=== PATIENT | female | born 1985 | race Caucasian/White ===

== ENCOUNTER 2018-03-25 12:57 | Outpatient (CLI) | payer BC ==
--- NOTE | 2018-03-25 17:59 | Ultrasound Report ---
Reason: ENCOUNTER FOR TEST, RESULT POSITIVE Procedure Date: 03/25/2018 Accession Number: [id number] / [id number] Procedure: US - OB First Trimester CPT Code: FULL RESULT: EXAM: FIRST TRIMESTER OBSTETRIC ULTRASOUND (Less than 11 weeks) EXAM DATE: 03/25/2018 02:30 PM. CLINICAL HISTORY: Encounter for test, result positive. LMP: 01/16/2018. COMPARISONS: None. TECHNIQUE: Transabdominal and transvaginal ultrasound examination with static image documentation. CLINICAL DATES: EGA 9 weeks 5 days with CARLO 10/23/2018 based on last menstrual period. ASSESSMENT: The gestational sac could not be appropriately measured due to acoustic window limitations and mass-effect mentioned below. Embryo: CRL (crown-rump length) 2.6 mm = 9 weeks 3 days. Cardiac activity: 174 beats per minute. Yolk sac: 5.1 mm. Amniotic fluid: Not accurately assessed at this gestational age. Early placenta: Not visible at this gestational age. Other: No perigestational fluid collection demonstrated. MATERNAL STRUCTURES: Uterus: Anteverted. The uterus contains a hypoechoic 7.8 x 7.1 x 7.0 cm fundal mass which displaces the endometrium and gestation posteriorly, felt to represent a fibroid. Cervix: Closed. The adnexa were not well seen. Free Fluid: None. Other: None. IMPRESSION: 1. Single viable intrauterine at EGA 9 weeks 3 days with CARLO 10/25/2018 based on crown-rump length, which is concordant with clinical dating based on the last menstrual period. 2. Assigned dating is CARLO 9 weeks 3 days based on the current ultrasound. RADIA
== END 2018-03-25 12:58 | disposition home or self-care (01) ==
LOC: DI 12:57
PROVIDERS: ATTEND Registered Nurse
DX: Z32.01 Encounter for pregnancy test, result positive (principal); Z3A.09 9 weeks gestation of pregnancy
CPT/HCPCS: 76801

== ENCOUNTER 2018-03-28 08:00 | Outpatient (CLI) | payer BC ==
[2018-03-28 14:34] LABS: MUDS CUTOFF CONCENTRATIONS CUTOFF CONC BELOW:
[2018-03-28 15:03] LABS: AMPHETAMINE SCREEN,URINE NEGATIVE (NEGATIVE); BENZODIAZEPINES SCREEN, URINE NEGATIVE (NEGATIVE); COCAINE SCREEN URINE NEGATIVE (NEGATIVE); METHADONE SCREEN, URINE NEGATIVE (NEGATIVE); METHAMPHETAMINES SCREEN, URINE NEGATIVE (NEGATIVE); OPIATE SCREEN, URINE NEGATIVE (NEGATIVE); OXYCODONE SCREEN, URINE NEGATIVE (NEGATIVE); PROPOXYPHENE SCREEN, URINE NEGATIVE (NEGATIVE); TRICYCLIC ANTIDEPRESSANT,URINE NEGATIVE (NEGATIVE)
== END 2018-03-28 08:01 | disposition home or self-care (01) ==
LOC: LAB.R 08:00
PROVIDERS: ATTEND Obstetrics & Gynecology
DX: Z36.9 Encounter for antenatal screening, unspecified (principal); Z11.3 Encounter for screening for infections with a predominantly sexual mode of transmission
CPT/HCPCS: 80306; 87491; 87591

== ENCOUNTER 2018-04-20 11:31 | Outpatient (CLI) | payer BC ==
[2018-04-20 12:00] LABS: BILIRUBIN,URINE NEGATIVE (NEGATIVE); GLUCOSE, URINE (UA) NEGATIVE (NEGATIVE); KETONES,URINE (UA) NEGATIVE (NEGATIVE); LEUKOCYTE ESTERASE, URINE NEGATIVE (NEGATIVE); NITRITE,URINE NEGATIVE (NEGATIVE); OCCULT BLOOD,URINE NEGATIVE (NEGATIVE); PROTEIN,URINE NEGATIVE (NEGATIVE); UROBILINOGEN,URINE 0.2 (NORMAL) E.U./dL (NORMAL)
[2018-04-20 12:00] LABS: BASOPHILS % (AUTO) 0.3 %; EOSINOPHILS # (AUTO) 0.1 10^3/uL (0.0-0.7); EOSINOPHILS % (AUTO) 0.7 %; HGB - HEMOGLOBIN 13.7 g/dL (12.0-16.0); LYMPHOCYTES # (AUTO) 1.4 10^3/uL (1.5-3.5); LYMPHOCYTES % (AUTO) 18.1 %; MEAN CORPUSCULAR HEMOGLOBIN 29.9 pg (27.0-31.0); MEAN CORPUSCULAR HGB CONC 34.8 g/dL (32.0-36.0); MEAN CORPUSCULAR VOLUME 86.1 fL (81.0-99.0); MEAN PLATELET VOLUME 9.8 fL (7.9-10.8); MONOCYTES # (AUTO) 0.5 10^3/uL (0.0-1.0); NEUTROPHILS # (AUTO) 5.7 10^3/uL (1.5-6.6); NEUTROPHILS % (AUTO) 73.9 %; PLT - PLATELET COUNT 187 10^3/uL (130-450); RED BLOOD COUNT 4.58 10^6/uL (4.20-5.40); RED CELL DISTRIBUTION WIDTH 12.8 % (12.0-15.0); WHITE BLOOD COUNT 7.7 x10^3/uL (4.8-10.8)
[2018-04-20 12:07] LABS: BACTERIA,URINE Rare /HPF (None Seen); CLARITY,URINE CLEAR (CLEAR); RBC,URINE None Seen /HPF (0-5); SQUAMOUS EPITHELIAL CELL,UR MOD Squamous (<= Few)
[2018-04-21 12:50] LABS: HIV AG/AB 4TH GEN NON-REACTIVE (NON-REACTIVE)
[2018-04-21 13:31] LABS: HEPATITIS B SURFACE ANTIGEN NON-REACTIVE (NON-REACTIVE); HEPATITIS C ANTIBODY NON-REACTIVE (NON-REACTIVE)
== END 2018-04-20 11:32 | disposition home or self-care (01) ==
LOC: LAB 11:31
PROVIDERS: ATTEND Obstetrics & Gynecology
DX: Z36.9 Encounter for antenatal screening, unspecified (principal); Z34.90 Encounter for supervision of normal pregnancy, unspecified, unspecified trimester
CPT/HCPCS: 36415; 81001; 81599; 85025; 86592; 86762; 86803; 86850; 86900; 86901; 87340; 87389

== ENCOUNTER 2018-05-23 11:12 | Outpatient (CLI) | payer SELFPAY | END 2018-05-23 11:13 | disposition home or self-care (01) | LOC: LAB 11:12 | PROVIDERS: ATTEND Obstetrics & Gynecology | DX: Z01.89 Encounter for other specified special examinations (principal); Z33.1 Pregnant state, incidental | CPT/HCPCS: 36415 ==

== ENCOUNTER 2022-11-16 14:15 | Outpatient (CLI) | payer OTHER ==
--- NOTE | 2022-11-16 17:17 | XRAY Report ---
PROCEDURE: Elbow 2 View RT INDICATIONS: PAIN IN RIGHT ELBOW TECHNIQUE: 2 views of the elbow were acquired. COMPARISON: None. FINDINGS: Bones: Abnormal rotation of the lateral humerus, with associated dystrophic calcification within thi s region. Soft tissues: Moderate effusion. No suspicious soft tissue calcifications or masses. IMPRESSION: Abnormal rotation of the distal humerus, with associated moderate elbow joint effusion. Evidence of p rior injury within this region. Consider cross-sectional imaging for further evaluation. Reviewed by: Marshall Sanchez on 11/16/2022 4:15 PM PONCHO Approved by: Marshall Sanchez on 11/16/2022 4:15 PM PONCHO Station ID: [id number]
== END 2022-11-16 14:30 | disposition home or self-care (01) ==
LOC: DI.N 14:15
PROVIDERS: ATTEND Nurse Practitioner
DX: M25.521 Pain in right elbow (principal); M25.421 Effusion, right elbow; M21.821 Other specified acquired deformities of right upper arm

== ENCOUNTER 2023-11-06 06:51 | Inpatient (IN) | payer OTHER ==
[2023-11-06 07:50] LABS: BASOPHILS # (AUTO) 0.1 10^3/uL (0.0-0.1); BASOPHILS % (AUTO) 0.4 %; EOSINOPHILS # (AUTO) 0.1 10^3/uL (0.0-0.7); EOSINOPHILS % (AUTO) 0.7 %; HCT - HEMATOCRIT 44.6 % (37.0-47.0); HGB - HEMOGLOBIN 14.3 g/dL (12.0-16.0); LYMPHOCYTES # (AUTO) 1.4 10^3/uL (1.5-3.5); LYMPHOCYTES % (AUTO) 10.3 %; MEAN CORPUSCULAR HGB CONC 32.1 g/dL (32.0-36.0); MEAN CORPUSCULAR VOLUME 87.3 fL (81.0-99.0); MEAN PLATELET VOLUME 11.5 fL (7.9-10.8); MONOCYTES # (AUTO) 1.2 10^3/uL (0.0-1.0); MONOCYTES % (AUTO) 8.4 %; NEUTROPHILS % (AUTO) 79.8 %; PLT - PLATELET COUNT 267 10^3/uL (130-450); RED BLOOD COUNT 5.11 10^6/uL (4.20-5.40); RED CELL DISTRIBUTION WIDTH 12.8 % (12.0-15.0); WHITE BLOOD COUNT 13.8 x10^3/uL (4.8-10.8)
[2023-11-06] MEDS: SODIUM CHLORIDE 0.9% 1,000 ML IV STA (07:51)
[2023-11-06] MEDS: KETOROLAC 30 MG/ML VIAL IVP STA (07:51)
[2023-11-06 07:56] LABS: BILIRUBIN,URINE NEGATIVE (NEGATIVE); GLUCOSE, URINE (UA) NEGATIVE (NEGATIVE); KETONES,URINE (UA) NEGATIVE (NEGATIVE); LEUKOCYTE ESTERASE, URINE NEGATIVE (NEGATIVE); NITRITE,URINE NEGATIVE (NEGATIVE); OCCULT BLOOD,URINE SMALL (NEGATIVE); PROTEIN,URINE NEGATIVE (NEGATIVE); UROBILINOGEN,URINE 0.2 (NORMAL) E.U./dL (NORMAL)
[2023-11-06 07:57] LABS: CLARITY,URINE CLEAR (CLEAR)
[2023-11-06 07:59] LABS: HCG UR QUAL NEGATIVE
[2023-11-06 08:05] LABS: ALBUMIN 4.5 g/dL (3.2-5.5); ALBUMIN/GLOBULIN RATIO 1.6 (1.0-2.2); ALKALINE PHOSPHATASE 66 IU/L (42-121); ALT ALANINE AMINOTRANSFERASE 23 IU/L (10-60); AST ASPARTATE AMINOTRANSFERASE 12 IU/L (10-42); BILIRUBIN,TOTAL 1.3 mg/dL (0.2-1.0); BUN - BLOOD UREA NITROGEN 7 mg/dL (6-20); CALCIUM 9.9 mg/dL (8.5-10.3); CARBON DIOXIDE - CO2 26 mmol/L (21-32); CHLORIDE 103 mmol/L (101-111); CREATININE 0.7 mg/dL (0.6-1.3); GFR - MDRD 94 (>89); GLUCOSE 122 mg/dL (74-104); POTASSIUM 3.7 mmol/L (3.5-4.5); SODIUM 138 mmol/L (135-145); TOTAL PROTEIN 7.3 g/dL (6.4-8.9)
[2023-11-06 08:06] LABS: RBC,URINE 0-5 /HPF (0-5); WBC,URINE 0-3 /HPF (0-5)
[2023-11-06 08:06] LABS: LIPASE < 10 U/L (11-82)
[2023-11-06 08:07] LABS: BACTERIA,URINE Few /HPF (None Seen); SQUAMOUS EPITHELIAL CELL,UR FEW Squamous (<= Few)
[2023-11-06] MEDS ORDERED: iohexoL-300 100 ML VIAL ONE (08:08)
--- NOTE | 2023-11-06 09:07 | CT Report ---
PROCEDURE: Abdomen/Pelvis W INDICATIONS: LLQ pain CONTRAST: 100ml omni 300 TECHNIQUE: After the administration of intravenous contrast, a CT scan of the abdomen and pelvis was performed. Images were recorded and evaluated at appropriate window settings. Reformats: coronal and sagittal. F or radiation dose reduction, the following was used: automated exposure control, adjustment of mA and /or kV according to patient size. COMPARISON: None. FINDINGS: Image quality: Diagnostic. Lower chest: Unremarkable. Liver: No solid mass. Gallbladder: Unremarkable. Biliary tree: No intrahepatic or extrahepatic dilation, accounting for age. Spleen: No splenomegaly. Pancreas: No pancreatic ductal dilation. Adrenals: No adrenal nodule. Kidneys and ureters: No hydronephrosis. No renal cystic lesion which requires follow up. No solid mas s. Stomach, bowel and peritoneum: No gastric or small bowel dilation. There is thickening and inflammato ry change within the distal descending/proximal sigmoid colon. Colonic diverticular present. There ar e several punctate area of air within the mesenteric fat within the area of stranding. No abscess for mation.. No pathologic free fluid. Lymph nodes: No central or retroperitoneal adenopathy. Vessels: No infrarenal aortic aneurysm. Patent portal vein. PELVIS Reproductive organs: Unremarkable. Bladder: No abnormal wall thickening, accounting for underdistention. Pelvic lymph nodes: No pelvic adenopathy by size criteria. Bones: No aggressive osseous abnormality. Other: No significant ventral or inguinal hernia. IMPRESSION: Thickening and inflammatory change within the descending/sigmoid colon with diverticula most consiste nt with colitis secondary to diverticulitis. No abscess. There are several punctate areas of air within the mesenteric fat within the region of inflammatory c hange. These are suspected to represent small areas of diverticular perforation without visualization of more significant viscus perforation. Interval follow-up and correlation with patient's symptoms i s recommended. The above findings were discussed with Dr. Gibran Piedra on 11/06/2023 at 8:55 AM Reviewed by: Rachel Romero MD on 11/06/2023 9:06 AM PDT Approved by: Rachel Romero MD on 11/06/2023 9:06 AM PDT Station ID: [id number]
--- NOTE | 2023-11-06 09:14 | ED Physician Documentation ---
PD HPI ABD PAIN - Stated complaint Stated Complaint: ABD PX - Chief complaint Chief Complaint: Abd Pain - History obtained from History obtained from: Patient - History of Present Illness Timing - onset: How many days ago (3) Timing - duration: Days (3) Timing - details: Gradual onset, Still present Quality: Cramping, Sharp, Pain Location: LLQ Radiation: Other (suprapubic) Improved by: Other (nothing) Worsened by: Other (nothing) Associated symptoms: Nausea Similar symptoms before: Diagnosis (ovarian cyst) Recently seen: Not recently seen - Additional information Additional information: Previously well 38-year-old Lorena Bal has a prior history of ovarian cyst and 3 nights ago she felt a sharp cramping pain in her left lower quadrant and felt that she may have ruptured an ovarian cyst. She had persistence and worsening of the pain over the next 2 days and comes into the emergency department this morning with severe left lower quadrant pain that is now radiating across to her suprapubic area. She has not been able to improve this pain with Tylenol and she is vague about any other modifying factors. Is able to stand and walk pain is worsening and she has come to the emergency department today for evaluation. She does state that she has severe menstrual cramps when she gets them she has not expense being menstruation for another week.She had fever to 39 degrees early in the morning. 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 : None HEENT: None Psych: Bipolar disorder Musculoskeletal: None Derm: None - Past Surgical History Ortho: Arthroscopic surgery, Other - Allergies Allergies/Adverse Reactions: Allergies Allergy/AdvReac Type Severity Reaction Status Date / Time No Known Drug Allergies Allergy Verified 11/06/23 07:40 - Social History Does the pt smoke?: No Smoking Status: Never smoker Does the pt drink ETOH?: Yes Does the pt have substance abuse?: No PD ED PE NORMAL - Vitals Vital signs reviewed: Yes (Tachycardic and hypertensive) - General General: Alert and oriented X 3, Well developed/nourished, Other (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) - HEENT HEENT: Atraumatic, PERRL, EOMI - Neck Neck: Supple, no meningeal sign, No bony TTP - Cardiac Cardiac: RRR, No murmur - Respiratory Respiratory: No respiratory distress, Clear bilaterally - Abdomen Abdomen: Normal bowel sounds, Soft, Non distended, No organomegaly, Other (Minimal suprapubic discomfort to palpation.) - Back Back: No CVA TTP, No spinal TTP - Derm Derm: Normal color, Warm and dry, No rash - Extremities Extremities: No deformity, No edema - Neuro Neuro: Alert and oriented X 3, 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, No motor deficit, No sensory deficit, Normal speech Eye Opening: Spontaneous Motor: Obeys Commands Verbal: Oriented GCS Score: 15 - Psych Psych: Normal mood Results - Vitals Vitals: Vital Signs - 24 hr 11/06/23 07:19 Temperature 36.9 C Heart Rate 108 H Respiratory 18 Rate Blood Pressure 151/92 H O2 Saturation 98 Oxygen O2 Source Room air - Labs Labs: Laboratory Tests 11/06/23 11/06/23 11/06/23 07:30 07:35 07:35 WBC 13.8 H RBC 5.11 Hgb 14.3 Hct 44.6 MCV 87.3 MCH 28.0 MCHC 32.1 RDW 12.8 Plt Count 267 MPV 11.5 H Neut # (Auto) 11.0 H Lymph # (Auto) 1.4 L [place] # (Auto) 1.2 H Eos # (Auto) 0.1 Baso # (Auto) 0.1 Absolute Nucleated RBC 0.00 Nucleated RBC % 0.0 Sodium 138 Potassium 3.7 Chloride 103 Carbon Dioxide 26 Anion Gap 9.0 BUN 7 Creatinine 0.7 Estimated GFR (MDRD) 94 Glucose 122 H Calcium 9.9 Total Bilirubin 1.3 H AST 12 ALT 23 Alkaline Phosphatase 66 Total Protein 7.3 Albumin 4.5 Globulin 2.8 Albumin/Globulin Ratio 1.6 Lipase < 10 L Urine Color DARK YELLOW Urine Clarity CLEAR Urine pH 7.0 Ur Specific [place] 1.015 Urine Protein NEGATIVE Urine Glucose (UA) NEGATIVE Urine Ketones NEGATIVE Urine Occult Blood SMALL H Urine Nitrite NEGATIVE Urine Bilirubin NEGATIVE Urine Urobilinogen 0.2 (NORMAL) Ur Leukocyte Esterase NEGATIVE Urine RBC 0-5 Urine WBC 0-3 Ur Squamous Epith Cells FEW Squamous Urine Bacteria Few Ur Microscopic Review INDICATED Urine Culture Comments NOT INDICATED Urine HCG, Qual NEGATIVE - Rads (name of study) CT ab Relevant Findings:: See rad report, Other (see results below looks like a microperf) Procedures - Bedside sono Bedside sono by EMP: With use of POCUS I interrogated the left kidney and found the kidney was sonographically nontender and without evidence of hydronephrosis. PD Medical Decision Making - ED course Complexity details: reviewed old records, reviewed results, re-evaluated patient, considered differential, d/w patient Reviewed Lab Results: We reviewed a complete blood count showing an elevated white blood cell count of 13.8 with normal hemoglobin hematocrit and platelets and normal indices. Chemistries showed normal electrolytes normal kidney and liver function and a urinalysis is unremarkable with exception of some small occult blood the hCG was negative. My interpretation of these laboratory results in lieu of the patient's presenting findings and results of her CT scan showing a microperforated diverticula indicate the elevated white blood cell count is likely an indication of a reaction to infection. CT ab/pel with: Impression: Thickening and inflammatory change of the descending/sigmoid colon with diverticula most consistent with colitis secondary to diverticulitis. No abscess. There are several punctate areas of air within the mesenteric fat within the region of inflammatory change. These are suspected suspected to represent small areas of diverticular perforation without visualization of more significant viscus perforation. Interval follow-up and correlation with patient's symptoms is recommended. ED course: 38-year-old female with left lower quadrant abdominal pain has diverticulitis on CT scanning of the abdomen and pelvis and there is evidence of microperforation. I have consulted our surgeon Dr. Everett Camara who recommends admission to the medicine service and he will consult on the patient. Surgery is not anticipated at this point.Patient is treated here in the emergency department with intravenous Toradol with improvement in her pain. Placed the patient on Cipro and Flagyl intravenously and admit to the hospital for observation. Departure - Departure Disposition: [facility] DC/Xfer Clinical Impression: Diverticulitis of gastrointestinal tract, Diverticular disease of large intestine with complication Forms: PCP List
[2023-11-06] MEDS: CIPROFLOXACIN 400 MG/200 ML 400 MG/200 ML BAG IV STA (09:30)
[2023-11-06] MEDS: metroNIDAZOLE 500 MG/100 ML 500 MG/100 ML BAG IV ONE (09:30)
[2023-11-06] MEDS: ONDANSETRON 4 MG/2 ML VIAL IVP STA (11:08)
[2023-11-06] MEDS: HYDROmorphone 1 MG/ML CARPUJECT IVP STA (11:08)
[2023-11-06] MEDS ORDERED: SODIUM CHLORIDE FLUSH 0.9% 10 ML SYRINGE IVP PRN (11:13)
--- NOTE | 2023-11-06 11:39 | HISTORY & PHYSICAL EXAMINATION ---
Chief Complaint - Chief Complaint Chief Complaint: Abdominal Pain History of Present Illness - Admitted From Admitted From:: Emergency room - History Obtained From Records Reviewed: Yes History obtained from: Patient and emergency room physician Dr. Piedra - History of Present Illness HPI Comment/Other: Lorena Bal is a 38-year-old woman who presented to to the emergency room complaining of abdominal pain and fever to 39 C.. Patient reports she has had abdominal pain for multiple days and it is gotten progressively worse since last Wednesday. She reports her pain is primarily in the left lower quadrant of her abdomen. She took Tylenol for her pain with no improvement. Patient does report nausea. Laboratory studies performed in the emergency room revealed a leukocytosis of 13.[address] scan of the abdomen pelvis was performed which revealed thickening and inflammatory change in the distal descending/proximal sigmoid colon. Colonic diverticula are present. There are several punctate areas of air within the mesenteric fat within the area of stranding. There appeared to be no abscess. In the emergency room patient was treated with ciprofloxacin 400 mg intravenously and metronidazole 500 mg intravenously. 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 : reports: None HEENT: reports: None Psych: reports: Bipolar disorder Musculoskeletal: reports: None Derm: reports: None MRSA Hx?: No - Past Surgical History Ortho: reports: Arthroscopic surgery, Other Meds/Allgy - Allergies Allergies/Adverse Reactions: Allergies Allergy/AdvReac Type Severity Reaction Status Date / Time No Known Drug Allergies Allergy Verified 11/06/23 07:40 Exam - Vital Signs Vital Signs: Vital Signs x48h Temp Pulse Resp BP Pulse Ox 11/06/23 09:50 36.9 C 84 18 136/90 H 99 11/06/23 07:19 36.9 C 108 H 18 151/92 H 98 - Physical Exam General Appearance: positive: No acute distress, Alert Neck: positive: Thyroid nml, No JVD, Trachea midline Respiratory: positive: Other (Good air exchange in all lung bernard no wheezing no crackles.) Cardiovascular: positive: Other (Positive S1-S2 no extra heart sounds.) Abdomen: positive: Other (Obese soft positive bowel sounds no peritoneal signs positive diffuse tenderness in all quadrants of the abdomen and worse in the left lower quadrant.) Conclusion/Plan - Problem List (1) Diverticulitis of gastrointestinal tract Conclusion/Plan: Lorena Bal will be admitted to the hospital as an inpatient and treated with IV ciprofloxacin and metronidazole. She will continue with bowel rest and has been made NPO. She will receive D5 half-normal saline with 20 mill equivalents of KCl at 100/h mL for fluid hydration DVT prophylaxis with heparin 5000 units subcu twice a day. Dr. Camara of general surgery will see the patient - Lab Results Fish Bones: 11/06/23 07:35 11/06/23 07:35
--- NOTE | 2023-11-06 11:58 | CONSULTATION NOTE ---
Referring Provider Consult Date: 11/06/23 Chief Complaint - Chief Complaint Chief Complaint: abdominal pain and nausea for 4 days History of Present Illness - History Obtained From Records Reviewed: yes History obtained from: pt Exam Limitations: none - History of Present Illness HPI Comment/Other: 3 to 4 days abdominal pain and nausea. still having bms. 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 : reports: None HEENT: reports: None Psych: reports: Bipolar disorder Musculoskeletal: reports: None Derm: reports: None MRSA Hx?: No - Past Surgical History Ortho: reports: Arthroscopic surgery, Other Meds/Allgy - Allergies Allergies/Adverse Reactions: Allergies Allergy/AdvReac Type Severity Reaction Status Date / Time No Known Drug Allergies Allergy Verified 11/06/23 07:40 Review of Systems - Other Findings Other Findings: 10 pt ros as above otherwise unremarkable Exam - Vital Signs Reviewed Vital Signs: Yes Vital Signs: Vital Signs x48h Temp Pulse Resp BP Pulse Ox 11/06/23 09:50 36.9 C 84 18 136/90 H 99 11/06/23 07:19 36.9 C 108 H 18 151/92 H 98 - Physical Exam General Appearance: positive: No acute distress, Alert Eyes Bilateral: positive: PERRL, EOMI ENT: positive: No signs of dehydration Neck: positive: No JVD Respiratory: positive: No respiratory distress Abdomen: positive: Other (minmal pain and tenderness at this time) Neurologic/Psychiatric: positive: Oriented x3 Conclusion/Plan - Problem List (1) Diverticular disease of large intestine with complication Conclusion/Plan: recommend clears until pain resolved and then slowly advance diet at home to a high fiber diet thank you medicine for accepting. she will unlikely need surgery or IR drainage. given her bmi she is not a candidate for elective procedures at [facility] - Lab Results Fish Bones: 11/06/23 07:35 11/06/23 07:35 - Diagnostic Imaging Results Diagnostic Imaging Results: positive: Read independently (mild diverticulitis with micoperforation with air alone)
[2023-11-06] MEDS: D5.45NS W/20 MEQ KCL 1,000 ML IV STA (12:19)
--- NOTE | 2023-11-06 14:17 | PHARMACY PROGRESS NOTE ---
- Best Possible Medication History Admit Date and Time: 11/06/23 1113 Processed by: Pharmacy Medications reviewed in ED?: No Medication History completed: Yes Patient Interview: Completed As the person ultimately responsible for medication therapy, providers are able to order a medication from an existing home medication list in [facility] via the "Reconcile Routine" prior to Confirmation of that medication by support engineer. Such practice is discouraged except when the physician, in their clinical judgment, deems that a medical need exists for a medication without regard to previous use.
[2023-11-06] MEDS: HYDROcod/ACETAM 10 MG/325 MG TABLET PO PRN (15:02)
[2023-11-06] MEDS: SODIUM CHLORIDE FLUSH 0.9% 10 ML SYRINGE IVP SCH (16:18)
[2023-11-06] MEDS: metroNIDAZOLE 500 MG/100 ML 500 MG/100 ML BAG IV SCH (16:19)
[2023-11-06] MEDS: iohexoL-300 100 ML VIAL IVP ONE (18:33)
[2023-11-06] MEDS: HEPARIN 5,000 UNIT/ML VIAL SUBQ SCH (20:24)
[2023-11-06] MEDS: CIPROFLOXACIN 400 MG/200 ML 400 MG/200 ML BAG IV SCH (20:25)
[2023-11-06] MEDS: ACETAMINOPHEN 325 MG TABLET PO PRN (21:41)
[2023-11-07 05:14] LABS: BASOPHILS % (AUTO) 0.3 %; EOSINOPHILS # (AUTO) 0.1 10^3/uL (0.0-0.7); EOSINOPHILS % (AUTO) 0.8 %; HCT - HEMATOCRIT 37.2 % (37.0-47.0); HGB - HEMOGLOBIN 11.9 g/dL (12.0-16.0); LYMPHOCYTES # (AUTO) 1.9 10^3/uL (1.5-3.5); LYMPHOCYTES % (AUTO) 16.3 %; MEAN CORPUSCULAR HEMOGLOBIN 28.4 pg (27.0-31.0); MEAN CORPUSCULAR VOLUME 88.8 fL (81.0-99.0); MEAN PLATELET VOLUME 11.1 fL (7.9-10.8); MONOCYTES # (AUTO) 1.2 10^3/uL (0.0-1.0); MONOCYTES % (AUTO) 10.3 %; NEUTROPHILS # (AUTO) 8.2 10^3/uL (1.5-6.6); NEUTROPHILS % (AUTO) 72.1 %; PLT - PLATELET COUNT 204 10^3/uL (130-450); RED BLOOD COUNT 4.19 10^6/uL (4.20-5.40); RED CELL DISTRIBUTION WIDTH 13.2 % (12.0-15.0); WHITE BLOOD COUNT 11.4 x10^3/uL (4.8-10.8)
[2023-11-07 05:33] LABS: CREATININE 0.6 mg/dL (0.6-1.3); MAGNESIUM 1.7 mg/dL (1.7-2.3); PHOSPHORUS 3.1 mg/dL (2.5-5.0); POTASSIUM 3.5 mmol/L (3.5-4.5)
--- NOTE | 2023-11-07 23:20 | PROVIDER PROGRESS NOTE ---
Assessment/Plan - Problem List (1) Diverticulitis of gastrointestinal tract Assessment/Plan: Continue ciprofloxacin and metronidazole intravenously. Patient remains on bowel rest. Continue fluid hydration with D5 half-normal saline with 20 mill colons of potassium. DVT prophylaxis with heparin 5000 units twice daily. Anticipate 72 hours of antibiotics prior to assessment for discharge to home. - Current Meds Current Meds: Current Medications Generic Name Dose Route Start Last Admin Trade Name Freq PRN Reason Stop Dose Admin Acetaminophen 650 mg 11/06/23 17:00 11/07/23 22:29 Acetaminophen 325 Mg Tablet PO 650 mg Q4HR PRN Administration Pain or Fever > 38C (100.4F) Hydrocodone Bitart/Acetaminophen 1 tab 11/06/23 11:13 11/06/23 15:02 Hydrocod/Acetam 10 Mg/325 Mg Tablet PO 1 tab Q4HR PRN Administration Pain 8 to 10 Heparin Sodium (Porcine) 5,000 unit 11/06/23 21:00 11/07/23 21:01 Heparin 5,000 Unit/Ml Vial SUBQ 5,000 unit BID TRAN Administration Ciprofloxacin 400 mg in 200 mls @ 200 mls/hr 11/06/23 21:00 11/07/23 21:00 Cipro 400 Mg/200 Ml IV 200 mls/hr Q12H TRAN Administration Metronidazole 500 mg in 100 mls @ 100 mls/hr 11/06/23 17:00 11/07/23 22:37 Flagyl 500 Mg/100 Ml IV Infused Q8H TRAN Infusion Sodium Chloride 10 ml 11/06/23 17:00 11/07/23 17:31 Sodium Chloride Flush 0.9% 10 Ml Syringe IVP 10 ml 0100,0900,1700 TRAN Administration - Lab Result Fish Bone Diagrams: 11/07/23 05:07 11/07/23 05:07 Subjective - Subjective Patient Reports: Other (Alert. States her pain has improved but has not resolved. She denies fevers and chills she has no other complaints at this time.) Objective Vital Signs: Vital Signs - 24 hr 11/07/23 11/07/23 11/07/23 00:28 08:00 15:54 Temperature 36.4 C L 37.1 C 37.2 C Heart Rate [ 92 92 89 Brachial] Respiratory 20 16 20 Rate Blood Pressure 127/84 H 149/98 H 145/83 H [Right Brachial artery] O2 Saturation 96 95 96 Oxygen O2 Source Room air I&O (Last 24 Hrs): Intake and Output Totals x24h 11/05/23 11/06/23 11/07/23 23:59 23:59 23:59 Intake Total 2099 1500.000 Balance 2099 1500.000 General: Alert, Oriented x3, No acute distress HEENT: Atraumatic Neck: Supple, No JVD Neuro: Alert, Non Focal Cardiovascular: Other (Positive S1-S2 no extra heart sounds.) Respiratory: Other (Good air exchange in all lung bernard no wheezing no crackles.) Abdomen: Other (Soft positive tenderness in the left lower quadrant on palpation. Positive bowel sounds) Extremities: No cyanosis, No edema Skin: No rashes - Results Results: Laboratory Results WBC 11.4 x10^3/uL (4.8-10.8) H 11/07/23 05:07 RBC 4.19 10^6/uL (4.20-5.40) L 11/07/23 05:07 Hgb 11.9 g/dL (12.0-16.0) L 11/07/23 05:07 Hct 37.2 % (37.0-47.0) 11/07/23 05:07 MCV 88.8 fL (81.0-99.0) 11/07/23 05:07 MCH 28.4 pg (27.0-31.0) 11/07/23 05:07 MCHC 32.0 g/dL (32.0-36.0) 11/07/23 05:07 RDW 13.2 % (12.0-15.0) 11/07/23 05:07 Plt Count 204 10^3/uL (130-450) 11/07/23 05:07 MPV 11.1 fL (7.9-10.8) H 11/07/23 05:07 Neut # (Auto) 8.2 10^3/uL (1.5-6.6) H 11/07/23 05:07 Lymph # (Auto) 1.9 10^3/uL (1.5-3.5) 11/07/23 05:07 [place] # (Auto) 1.2 10^3/uL (0.0-1.0) H 11/07/23 05:07 Eos # (Auto) 0.1 10^3/uL (0.0-0.7) 11/07/23 05:07 Baso # (Auto) 0.0 10^3/uL (0.0-0.1) 11/07/23 05:07 Absolute Nucleated RBC 0.00 x10^3/uL 11/07/23 05:07 Nucleated RBC % 0.0 /100WBC 11/07/23 05:07 Sodium 137 mmol/L (135-145) 11/07/23 05:07 Potassium 3.5 mmol/L (3.5-4.5) 11/07/23 05:07 Chloride 105 mmol/L (101-111) 11/07/23 05:07 Carbon Dioxide 25 mmol/L (21-32) 11/07/23 05:07 Anion Gap 7.0 (6-13) 11/07/23 05:07 BUN 7 mg/dL (6-20) 11/07/23 05:07 Creatinine 0.6 mg/dL (0.6-1.3) 11/07/23 05:07 Estimated GFR (MDRD) 112 (>89) 11/07/23 05:07 Glucose 113 mg/dL (74-104) H 11/07/23 05:07 Calcium 9.0 mg/dL (8.5-10.3) 11/07/23 05:07 Phosphorus 3.1 mg/dL (2.5-5.0) 11/07/23 05:07 Magnesium 1.7 mg/dL (1.7-2.3) 11/07/23 05:07 Total Bilirubin 1.3 mg/dL (0.2-1.0) H 11/06/23 07:35 AST 12 IU/L (10-42) 11/06/23 07:35 ALT 23 IU/L (10-60) 11/06/23 07:35 Alkaline Phosphatase 66 IU/L (42-121) 11/06/23 07:35 Total Protein 7.3 g/dL (6.4-8.9) 11/06/23 07:35 Albumin 4.5 g/dL (3.2-5.5) 11/06/23 07:35 Globulin 2.8 g/dL (2.1-4.2) 11/06/23 07:35 Albumin/Globulin Ratio 1.6 (1.0-2.2) 11/06/23 07:35 Lipase < 10 U/L (11-82) L 11/06/23 07:35 Urine Color DARK YELLOW 11/06/23 07:30 Urine Clarity CLEAR (CLEAR) 11/06/23 07:30 Urine pH 7.0 PH (5.0-7.5) 11/06/23 07:30 Ur Specific [place] 1.015 (1.002-1.030) 11/06/23 07:30 Urine Protein NEGATIVE mg/dL (NEGATIVE) 11/06/23 07:30 Urine Glucose (UA) NEGATIVE mg/dL (NEGATIVE) 11/06/23 07:30 Urine Ketones NEGATIVE mg/dL (NEGATIVE) 11/06/23 07:30 Urine Occult Blood SMALL (NEGATIVE) H 11/06/23 07:30 Urine Nitrite NEGATIVE (NEGATIVE) 11/06/23 07:30 Urine Bilirubin NEGATIVE (NEGATIVE) 11/06/23 07:30 Urine Urobilinogen 0.2 (NORMAL) E.U./dL (NORMAL) 11/06/23 07:30 Ur Leukocyte Esterase NEGATIVE (NEGATIVE) 11/06/23 07:30 Urine RBC 0-5 /HPF (0-5) 11/06/23 07:30 Urine WBC 0-3 /HPF (0-5) 11/06/23 07:30 Ur Squamous Epith Cells FEW Squamous (<= Few) 11/06/23 07:30 Urine Bacteria Few /HPF (None Seen) 11/06/23 07:30 Ur Microscopic Review INDICATED 11/06/23 07:30 Urine Culture Comments NOT INDICATED 11/06/23 07: Urine HCG, Qual NEGATIVE 11/06/23 07:30 - Procedures Procedures: Procedures EXTRACTION OF PRODUCTS OF CONCEPTION, RETAINED, VIA OPENING (10/29/17)
[2023-11-08] MEDS: D5.45NS W/20 MEQ KCL 1,000 ML IV SCH (14:59)
[2023-11-08] MEDS: METOCLOPRAMIDE 10 MG/2 ML VIAL IVP PRN (21:05)
--- NOTE | 2023-11-08 21:12 | PROVIDER PROGRESS NOTE ---
Assessment/Plan - Problem List (1) Diverticulitis of gastrointestinal tract Assessment/Plan: Continue ciprofloxacin and metronidazole intravenously. Patient remains on bowel rest. Continue fluid hydration with D5 half-normal saline with 20 mill colons of potassium. DVT prophylaxis with heparin 5000 units twice daily. Anticipate 72 hours of antibiotics prior to assessment for discharge to home. If leukocytosis persists or pain worsens patient may require a prolonged in hospital stay. - Current Meds Current Meds: Current Medications Generic Name Dose Route Start Last Admin Trade Name Freq PRN Reason Stop Dose Admin Acetaminophen 650 mg 11/06/23 17:00 11/08/23 18:55 Acetaminophen 325 Mg Tablet PO 650 mg Q4HR PRN Administration Pain or Fever > 38C (100.4F) Hydrocodone Bitart/Acetaminophen 1 tab 11/06/23 11:13 11/06/23 15:02 Hydrocod/Acetam 10 Mg/325 Mg Tablet PO 1 tab Q4HR PRN Administration Pain 8 to 10 Heparin Sodium (Porcine) 5,000 unit 11/06/23 21:00 11/08/23 08:54 Heparin 5,000 Unit/Ml Vial SUBQ Not Given BID TRAN Ciprofloxacin 400 mg in 200 mls @ 200 mls/hr 11/06/23 21:00 11/08/23 09:10 Cipro 400 Mg/200 Ml IV Infused Q12H TRAN Infusion Metronidazole 500 mg in 100 mls @ 100 mls/hr 11/06/23 17:00 11/08/23 16:48 Flagyl 500 Mg/100 Ml IV 100 mls/hr Q8H TRAN Administration Potassium Chloride/Dextrose/Sod Cl 1,000 mls @ 100 mls/hr 11/08/23 14:00 11/08/23 14:59 D5.45ns W/20 Meq Kcl IV 100 mls/hr .Q10H TRAN Administration Sodium Chloride 10 ml 11/06/23 17:00 11/08/23 08:04 Sodium Chloride Flush 0.9% 10 Ml Syringe IVP 10 ml 0100,0900,1700 TRAN Administration - Lab Result Fish Bone Diagrams: 11/07/23 05:07 11/07/23 05:07 - Additional Planning My Orders: My Active Orders 11/08/23 14:00 D5.45ns W/20 Meq KCl 1,000 ml IV 100 mls/hr 11/08/23 20:36 Metoclopramide Inj [Reglan Inj] 10 mg IVP Q6HR PRN Subjective - Subjective Patient Reports: Other (Alert. Reports her pain has decreased but continues to have some pain. She denies fevers or chills she has no other complaints at this time.) Objective Vital Signs: Vital Signs - 24 hr 11/08/23 11/08/23 11/08/23 00:20 08:00 15:32 Temperature 36.4 C L 37.1 C 36.7 C Heart Rate [ 83 83 85 Brachial] Respiratory 16 16 20 Rate Blood Pressure 132/86 H 155/92 H 126/76 [Right Brachial artery] O2 Saturation 96 97 99 Oxygen O2 Source Room air I&O (Last 24 Hrs): Intake and Output Totals x24h 11/06/23 11/07/23 11/08/23 23:59 23:59 23:59 Intake Total 2100 1700.000 550 Balance 2100 1700.000 550 General: Alert, Oriented x3, No acute distress HEENT: Atraumatic Neck: No JVD, No thyromegaly Neuro: Alert, Non Focal Cardiovascular: Other (Positive S1-S2 no extra heart sounds.) Respiratory: Other (Good air exchange in all lung bernard no wheezing no crackl es.) Abdomen: Other (Positive bowel sounds soft positive tenderness in right lower quadrant on palpation.) Extremities: No cyanosis, No edema Skin: No rashes - Results Results: Laboratory Results WBC 11.4 x10^3/uL (4.8-10.8) H 11/07/23 05:07 RBC 4.19 10^6/uL (4.20-5.40) L 11/07/23 05:07 Hgb 11.9 g/dL (12.0-16.0) L 11/07/23 05:07 Hct 37.2 % (37.0-47.0) 11/07/23 05:07 MCV 88.8 fL (81.0-99.0) 11/07/23 05:07 MCH 28.4 pg (27.0-31.0) 11/07/23 05:07 MCHC 32.0 g/dL (32.0-36.0) 11/07/23 05:07 RDW 13.2 % (12.0-15.0) 11/07/23 05:07 Plt Count 204 10^3/uL (130-450) 11/07/23 05:07 MPV 11.1 fL (7.9-10.8) H 11/07/23 05:07 Neut # (Auto) 8.2 10^3/uL (1.5-6.6) H 11/07/23 05:07 Lymph # (Auto) 1.9 10^3/uL (1.5-3.5) 11/07/23 05:07 Petroleum # (Auto) 1.2 10^3/uL (0.0-1.0) H 11/07/23 05:07 Eos # (Auto) 0.1 10^3/uL (0.0-0.7) 11/07/23 05:07 Baso # (Auto) 0.0 10^3/uL (0.0-0.1) 11/07/23 05:07 Absolute Nucleated RBC 0.00 x10^3/uL 11/07/23 05:07 Nucleated RBC % 0.0 /100WBC 11/07/23 05:07 Sodium 137 mmol/L (135-145) 11/07/23 05:07 Potassium 3.5 mmol/L (3.5-4.5) 11/07/23 05:07 Chloride 105 mmol/L (101-111) 11/07/23 05:07 Carbon Dioxide 25 mmol/L (21-32) 11/07/23 05:07 Anion Gap 7.0 (6-13) 11/07/23 05:07 BUN 7 mg/dL (6-20) 11/07/23 05:07 Creatinine 0.6 mg/dL (0.6-1.3) 11/07/23 05:07 Estimated GFR (MDRD) 112 (>89) 11/07/23 05:07 Glucose 113 mg/dL (74-104) H 11/07/23 05:07 Calcium 9.0 mg/dL (8.5-10.3) 11/07/23 05:07 Phosphorus 3.1 mg/dL (2.5-5.0) 11/07/23 05:07 Magnesium 1.7 mg/dL (1.7-2.3) 11/07/23 05:07 Total Bilirubin 1.3 mg/dL (0.2-1.0) H 11/06/23 07:35 AST 12 IU/L (10-42) 11/06/23 07:35 ALT 23 IU/L (10-60) 11/06/23 07:35 Alkaline Phosphatase 66 IU/L (42-121) 11/06/23 07:35 Total Protein 7.3 g/dL (6.4-8.9) 11/06/23 07:35 Albumin 4.5 g/dL (3.2-5.5) 11/06/23 07:35 Globulin 2.8 g/dL (2.1-4.2) 11/06/23 07:35 Albumin/Globulin Ratio 1.6 (1.0-2.2) 11/06/23 07:35 Lipase < 10 U/L (11-82) L 11/06/23 07:35 Urine Color DARK YELLOW 11/06/23 07:30 Urine Clarity CLEAR (CLEAR) 11/06/23 07:30 Urine pH 7.0 PH (5.0-7.5) 11/06/23 07:30 Ur Specific [place] 1.015 (1.002-1.030) 11/06/23 07:30 Urine Protein NEGATIVE mg/dL (NEGATIVE) 11/06/23 07:30 Urine Glucose (UA) NEGATIVE mg/dL (NEGATIVE) 11/06/23 07:30 Urine Ketones NEGATIVE mg/dL (NEGATIVE) 11/06/23 07:30 Urine Occult Blood SMALL (NEGATIVE) H 11/06/23 07:30 Urine Nitrite NEGATIVE (NEGATIVE) 11/06/23 07:30 Urine Bilirubin NEGATIVE (NEGATIVE) 11/06/23 07:30 Urine Urobilinogen 0.2 (NORMAL) E.U./dL (NORMAL) 11/06/23 07:30 Ur Leukocyte Esterase NEGATIVE (NEGATIVE) 11/06/23 07:30 Urine RBC 0-5 /HPF (0-5) 11/06/23 07:30 Urine WBC 0-3 /HPF (0-5) 11/06/23 07:30 Ur Squamous Epith Cells FEW Squamous (<= Few) 11/06/23 07:30 Urine Bacteria Few /HPF (None Seen) 11/06/23 07:30 Ur Microscopic Review INDICATED 11/06/23 07:30 Urine Culture Comments NOT INDICATED 11/06/23 07:30 Urine HCG, Qual NEGATIVE 11/06/23 07:30 - Procedures Procedures: Procedures EXTRACTION OF PRODUCTS OF CONCEPTION, RETAINED, VIA OPENING (10/29/17)
[2023-11-09 05:36] LABS: BASOPHILS % (AUTO) 0.5 %; EOSINOPHILS # (AUTO) 0.2 10^3/uL (0.0-0.7); EOSINOPHILS % (AUTO) 4.2 %; HCT - HEMATOCRIT 36.5 % (37.0-47.0); LYMPHOCYTES # (AUTO) 1.7 10^3/uL (1.5-3.5); LYMPHOCYTES % (AUTO) 30.4 %; MEAN CORPUSCULAR HEMOGLOBIN 28.4 pg (27.0-31.0); MEAN CORPUSCULAR HGB CONC 32.9 g/dL (32.0-36.0); MEAN CORPUSCULAR VOLUME 86.5 fL (81.0-99.0); MEAN PLATELET VOLUME 10.7 fL (7.9-10.8); MONOCYTES # (AUTO) 0.4 10^3/uL (0.0-1.0); MONOCYTES % (AUTO) 7.7 %; NEUTROPHILS # (AUTO) 3.1 10^3/uL (1.5-6.6); PLT - PLATELET COUNT 251 10^3/uL (130-450); RED BLOOD COUNT 4.22 10^6/uL (4.20-5.40); RED CELL DISTRIBUTION WIDTH 12.8 % (12.0-15.0); WHITE BLOOD COUNT 5.5 x10^3/uL (4.8-10.8)
--- NOTE | 2023-11-09 15:58 | Discharge Plan ---
Discharge Plan Problem Reviewed?: Yes Disposition: Home, Self Care Condition: Stable Prescriptions: Ciprofloxacin [Cipro] 500 mg PO BID 7 Days #28 tab metroNIDAZOLE [Flagyl] 500 mg PO TIDWM 7 Days #21 tab Diet: Soft Activity Restrictions: No Restrictions Shower Restrictions: No Driving Restrictions: No Weight Bearing: Full Weight Instruction Topics: Diverticulitis Dc Plan of Treatment: Your diverticulits was treated with cipro and flgyl iv during hospital stay, your leukocytosis resolved, symptoms improved. Please continue oral antibiotic as prescribed. You had bowel rest for the time during hospital stay, you are recommended to have soft food for the next two weeks, follow up with your PCP for post hospital evaluation Care Goals: Completely resolved of diverticulitis Assessment: Diverticulitis, uncomplicated Improved after medical management Continue oral antibiotics for 7 days, follow up with PCP No Smoking: If you smoke, Please STOP! Call for help.
[2023-11-09 17:08] VITALS: BP 130/90; O2SAT 97
--- NOTE | 2023-11-09 17:56 | DISCHARGE SUMMARY ---
Discharge Summary Admit Date: 11/06/23 Discharge Date: 11/09/23 Discharging Provider: Heri Elena Code Status: Attempt Resuscitation Condition at Discharge: Stable Discharge Disposition: 01 Home, Self Care - DIAGNOSES Admission Diagnoses: Diverticulitis Discharge Diagnoses with Status of Each Condition: Diverticulitis, improved Abdominal pain, resolved Leukocytosis, resolved - HPI History of Present Illness: Lorena Bal is a 38-year-old woman who presented to to the emergency room complaining of abdominal pain and fever to 39 C.. Patient reports she has had abdominal pain for multiple days and it is gotten progressively worse since last Wednesday. She reports her pain is primarily in the left lower quadrant of her abdomen. She took Tylenol for her pain with no improvement. Patient does report nausea. Laboratory studies performed in the emergency room revealed a leukocytosis of 13.[address] scan of the abdomen pelvis was performed which revealed thickening and inflammatory change in the distal descending/proximal sigmoid colon. Colonic diverticula are present. There are several punctate areas of air within the mesenteric fat within the area of stranding. There appeared to be no absce ss. In the emergency room patient was treated with ciprofloxacin 400 mg intravenously and metronidazole 500 mg intravenously. - HOSPITAL COURSE Hospital Course: After admission, patient was on bowel rest, given iv fluid and aneagesia, antiemisis for supportive care, continue receiving cipro and flagyl iv. Patient's WBC 13.8-->11.4-->5.5, abdominal pain resolved, advance diet, able to tolerate general diet. discharge in stable condition with 7 more days oral cipro and flagyl for total treatment course of 10 days. Follow up with PCP - ALLERGIES Allergies/Adverse Reactions: Allergies Allergy/AdvReac Type Severity Reaction Status Date / Time No Known Drug Allergies Allergy Verified 11/06/23 07:40 - MEDICATIONS Home Medications: Ambulatory Orders Medication Instructions Recorded Confirmed Acetaminophen [Tylenol] 1,000 mg PO QPM PRN 11/06/23 11/06/23 Albuterol Sulfate [Proair 2 puffs INH Q6H PRN 11/06/23 11/06/23 Respiclick] Ibuprofen 200 - 400 mg PO QPM PRN 11/06/23 11/06/23 diphenhydrAMINE [Benadryl] 25 mg PO HS PRN 11/06/23 11/06/23 Ciprofloxacin [Cipro] 500 mg PO BID 7 Days #28 tab 11/09/23 metroNIDAZOLE [Flagyl] 500 mg PO TIDWM 7 Days #21 tab 11/09/23 - PHYSICAL EXAM AT DISCHARGE General Appearance: positive: No acute distress, Alert Eyes Bilateral: positive: Normal inspection, PERRL, EOMI ENT: positive: No signs of dehydration Neck: positive: No JVD Cardiovascular: positive: Regular rate & rhythm, No murmur Abdomen: positive: Non-tender, Nml bowel sounds. negative: Guarding, Rebound Skin: positive: Warm, Dry Extremities: positive: Non-tender, Full ROM, No pedal edema Neurologic/Psychiatric: positive: Oriented x3 - LABS Result Diagrams: 11/09/23 05:24 11/07/23 05:07 - DIAGNOSTIC IMAGING Diagnostic Imaging Results: Final report reviewed - SEPSIS Current Stage of Sepsis: Ruled out - TIME SPENT Time Spent in Discharge (Minutes): 35
[2023-11-10] MEDS ORDERED: CIPROFLOXACIN 250 MG TABLET PO SCH (09:00)
[2023-11-10] MEDS ORDERED: metroNIDAZOLE 250 MG TABLET PO SCH (09:00)
== END 2023-11-09 18:25 | disposition home or self-care (01) | DRG 392 ==
LOC: ED 06:51 → MS2 11:13
PROVIDERS: ADMIT Internal Medicine; ATTEND Internal Medicine
DX: K57.32 Diverticulitis of large intestine without perforation or abscess without bleeding (principal); D72.829 Elevated white blood cell count, unspecified; R00.0 Tachycardia, unspecified; I10 Essential (primary) hypertension; Z32.02 Encounter for pregnancy test, result negative
CPT/HCPCS: 36415; 74177; 80048; 80053; 81001; 81025; 82247; 83690; 83735; 84100; 85025; 87040; 96365; 96368; 96375; 99285; A9270; J1170; J2765; Q9967; 81003; 87086

== ENCOUNTER 2023-12-04 13:23 | Outpatient (CLI) | payer OTHER ==
--- NOTE | 2023-12-05 16:56 | Ultrasound Report ---
PROCEDURE: Pelvic w/Transvaginal INDICATIONS: MENORRHAGIA TECHNIQUE: Real-time scanning was performed of the pelvic organs, with image documentation. Additional endovagi nal scanning was necessary due to incomplete visualization of the adnexal and endometrial structures by transabdominal scanning. COMPARISON: CT abdomen and pelvis on November 06, 2023. FINDINGS: Uterus: Uterus is anteverted and normal in size at 7.3 x 4 x 5.3 cm. The myometrium is heterogeneou s. The endometrium measures 7.4 mm in combined thickness. Cervix and vagina are within normal limit s. Ovaries: The right ovary measures 3.7 x 2.2 x 2.9 cm, with a calculated ovarian volume of 12.3 cc. The left ovary measures 2.8 x 2.1 x 2.8 cm, with a calculated ovarian volume of 8.8 cc. The ovaries have a normal sonographic appearance. Less than 12 follicles can be seen in each ovary. No adnexal masses are seen. No cystic lesions measuring greater than 3 cm. Other: No pathologic free abdominal or pelvic fluid. IMPRESSION: 1.Endometrial thickness is normal at 7.4 mm. Myometrium is heterogeneous which is nonspecific and may be seen in the setting of adenomyosis. 2.Normal sonographic appearance of the bilateral ovaries. Reviewed by: Regina Burns MD on 12/05/2023 4:54 PM PDT Approved by: Regina Burns MD on 12/05/2023 4:54 PM PDT Station ID: [id number]
== END 2023-12-04 13:24 | disposition home or self-care (01) ==
LOC: DI 13:23
PROVIDERS: ATTEND Family Medicine
DX: N92.0 Excessive and frequent menstruation with regular cycle (principal)